=== PATIENT | female | born 1985 | race Caucasian/White ===

== ENCOUNTER 2017-02-20 16:40 | Emergency (ER) | payer BC, OTHER ==
[~2017-02-20] VITALS: Ht 167.6 cm; Wt 108.9 kg
[2017-02-20] MEDS ORDERED: CLARITIN10 MG PO (16:58)
[2017-02-20] MEDS ORDERED: OMEPRAZOLE 20 M20 M1 PO (16:58)
[2017-02-20 17:03] LABS: URINE BLOOD NEGATIVE (Negative); URINE COLOR YELLOW; URINE GLUCOSE-RANDOM* NEGATIVE (Negative); URINE KETONES 1+ (Negative); URINE NITRITE NEGATIVE (Negative); URINE PROTEIN (DIPSTICK) NEGATIVE (Negative); URINE SPECIFIC GRAVITY >= 1.030 (1.003-1.035); URINE UROBILINOGEN 0.2 E.U./dl (0.2-1.0)
[2017-02-20 17:10] LABS: ICTOTEST (BILI CONFIRMATORY) Negative (Negative); URINE BILIRUBIN NEGATIVE (Negative)
[2017-02-20 17:11] LABS: HEMATOCRIT 40.3 % (37.0-47.0); MCH 28.4 pg (26.0-34.0); MCHC 32.2 g/dL (28.0-37.0); MCV 88.3 fL (80.0-100.0); PLATELET COUNT 403 thou/uL (150-400); RBC 4.56 mil/uL (4.20-5.00); RDW 14.7 % (10.5-14.5); WBC 20.1 thou/uL (4.0-11.0)
[2017-02-20 17:12] LABS: MANUAL DIFF YES
[2017-02-20 17:18] LABS: CASTS None Seen /LPF (None Seen); CRYSTALS None Seen /LPF (None Seen); SQUAMOUS 4-10 Moderate /LPF (0-3); URINE WBC 6-15 Few /HPF (0-5)
[2017-02-20 17:19] LABS: BACTERIA 1-9 Few /HPF (None Seen); URINE RBC None Seen /HPF (0-2)
[2017-02-20 17:21] LABS: CALCIUM 9.4 mg/dL (8.5-10.1); CREATININE 0.8 mg/dL (0.6-1.0); POTASSIUM 3.7 mmol/L (3.5-5.1)
[2017-02-20 17:26] LABS: ALBUMIN 3.9 g/dL (3.4-5.0); TOTAL BILIRUBIN 0.5 mg/dL (<0.1-1.0); TOTAL PROTEIN 7.9 g/dL (6.4-8.2)
[2017-02-20 17:42] LABS: ABSOLUTE NEUTROPHILS 16.3 thou/uL (1.4-8.2); TOTAL CELL COUNT 100
[2017-02-20 17:43] LABS: ANISOCYTOSIS 2+; HYPOCHROMASIA 1+
[2017-02-20 17:44] LABS: POLYCHROMASIA OCCASIONAL
[2017-02-20] MEDS ORDERED: ONDANSETRON HCL4 M2 PO (19:37)
[2017-02-20 19:50] VITALS: BP 112/62
== END 2017-02-20 19:52 | disposition home or self-care (01) ==
LOC: ER 16:40
PROVIDERS: Physician Assistant
DX: R10.12 Left upper quadrant pain (principal); D72.829 Elevated white blood cell count, unspecified; R11.2 Nausea with vomiting, unspecified; Z98.84 Bariatric surgery status; Z88.0 Allergy status to penicillin; Z88.2 Allergy status to sulfonamides; Z91.040 Latex allergy status

== ENCOUNTER → 2017-02-22 | Outpatient (CLI) | payer BC, OTHER ==
[~2017-02-22] MED LIST: CLARITIN10 MG PO; OMEPRAZOLE 20 M20 M1 PO; ONDANSETRON HCL4 M2 PO
== END ==
LOC: CAT 11:56
DX: K86.9 Disease of pancreas, unspecified (principal)

== ENCOUNTER → 2019-03-19 | Outpatient (CLI) | payer BC, OTHER | LOC: CAT 07:17 | DX: K42.9 Umbilical hernia without obstruction or gangrene (principal); N83.202 Unspecified ovarian cyst, left side; Z98.84 Bariatric surgery status ==

== ENCOUNTER 2019-07-02 11:18 | Day surgery (SDC) | payer BC, OTHER ==
[~2019-07-02] VITALS: Ht 167.6 cm; Wt 86.2 kg
[~2019-07-02 11:18] MED LIST changes: +ADDERALL 10 MG10 MG PO; +BENTYL 10 MG CA10 M1 PO; +DESVENLAFAXINE100 MG PO; +DULERA 200 MCG/13 GM INH; +PROPRANOLOL 20M20 M1 PO; +SEROQUEL 50 MG50 M1 PO; +TRAMADOL 50 MG50 MG PO; +VALSARTAN-HCTZ1 EAC1 PO; +VENTOLIN HFA 1818 GM INH; +VISTARIL 25 MG25 M1 PO
[2019-07-02 11:54] LABS: CALCIUM 9.2 mg/dL (8.5-10.1); CREATININE 0.8 mg/dL (0.6-1.0); POTASSIUM 3.8 mmol/L (3.5-5.1)
[2019-07-02 12:00] VITALS: BP 130/90
[2019-07-02] MEDS ORDERED: NORCO 5-325 TA1 EAC1 PO (14:19)
[2019-07-02 15:09] VITALS: BP 130/90
--- NOTE | 2019-07-03 09:13 | EKG ---
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
--- NOTE | 2019-07-30 07:54 | O ---
[facility] [place] [address] OPERATIVE REPORT Name: CHRISDICK Pedro Room #: DEP [facility].#: [id number] Admission: 07/02/19 Attend Phys: Enio Shetty MD Discharge: 07/02/19 Date of : 89 Report #: [id number] THIS REPORT FOR: //name// CC: Kian Khan DATE OF SERVICE: 07/02/2019 PREOPERATIVE DIAGNOSIS: Umbilical hernia. POSTOPERATIVE DIAGNOSIS: Umbilical hernia. OPERATIVE PROCEDURE DONE: Laparoscopic repair of umbilical hernia with Symbotex mesh. OPERATING SURGEON: Enio Shetty MD INDICATIONS FOR THE PROCEDURE: The patient is a 33-year-old female who presented with features of an umbilical hernia that is causing increasing discomfort and she wished to have this repaired. The patient was advised laparoscopic repair of the same. DESCRIPTION OF PROCEDURE: After explaining to the patient in detail and informed consent was obtained, the patient was identified in the preoperative holding area. The patient was transferred to the operating room and was placed in supine position. Sequential compressive devices were placed for DVT prophylaxis. Preoperative antibiotics were given. After induction of anesthesia, the abdomen was prepped and draped in a sterile fashion. Through a left upper quadrant 1 cm incision and using Optiview technique, peritoneal cavity was entered and pneumoperitoneum was created. Thereafter, under direct vision, another 8 mm trocar was placed in the left flank and another 5 mm trocar was placed in the left lower quadrant region. On initial inspection, the patient was noted to have a 1.5 cm sized umbilical hernia. I took down all the preperitoneal fat that was going into the hernia and it was from the surrounding region. I then introduced a Symbotex mesh that was trimmed to size for about 10 cm. A [place]-Edvin suture was placed in the center of the mesh on the adherent surface. Mesh was then anchored onto the anterior abdominal wall. Tacks were then placed at 1 cm intervals using SecureStrap. Absolute hemostasis was ensured. The incisions were then closed with 4-0 Monocryl. Dermabond was applied. The patient was stable at the end of the procedure. The patient was awoken from anesthesia and was transferred to the recovery room in stable condition. ESTIMATED BLOOD LOSS: Minimal. [address] [address] OPERATIVE REPORT Name: DICK PEREZ Room #: [facility]#: [id number] Admission: 07/02/19 Attend Phys: Enio Shetty MD Discharge: 07/02/19 Date of : 89 Report #: [id number] CONDITION OF THE PATIENT: Stable. FLUIDS GIVEN: Per anesthesia notes. SPECIMEN SENT: None. COMPLICATIONS: None. ANESTHESIA: General anesthesia. <ELECTRONICALLY SIGNED> By: Enio Shetty MD 07/30/19 0754 1428 1506 Enio Shetty MD /nt
== END 2019-07-02 14:31 | disposition home or self-care (01) ==
LOC: OR 11:18 → TBA 11:18 → OR 14:31
PROVIDERS: Surgery
DX: K42.9 Umbilical hernia without obstruction or gangrene (principal); I10 Essential (primary) hypertension; J45.909 Unspecified asthma, uncomplicated; K21.9 Gastro-esophageal reflux disease without esophagitis; F32.9 Major depressive disorder, single episode, unspecified; F41.9 Anxiety disorder, unspecified; F17.210 Nicotine dependence, cigarettes, uncomplicated; Z98.84 Bariatric surgery status; Z98.890 Other specified postprocedural states; Z91.040 Latex allergy status; Z88.2 Allergy status to sulfonamides; Z88.0 Allergy status to penicillin; Z79.899 Other long term (current) drug therapy
CPT/HCPCS: 50010; 50101; 50249; 50386; 50555; 50984; 52265; 52266; 54022; 54118; 56526; 57092; 57261; 62110; 62900; 70005

== ENCOUNTER → 2019-08-25 | Outpatient (CLI) | payer BC, OTHER ==
[~2019-08-25] MED LIST changes: +NORCO 5-325 TA1 EAC1 PO
== END ==
LOC: ULTRA 15:07
DX: K80.20 Calculus of gallbladder without cholecystitis without obstruction (principal)

== ENCOUNTER 2019-09-02 07:49 | Day surgery (SDC) | payer BC, OTHER ==
[~2019-09-02] VITALS: Ht 167.6 cm; Wt 86.2 kg
[2019-09-02 08:34] VITALS: BP 124/81
[2019-09-02 10:09] LABS: HEMATOCRIT 29.5 % (37.0-47.0); MCH 22.8 pg (26.0-34.0); MCHC 30.7 g/dL (28.0-37.0); MCV 74.2 fL (80.0-100.0); RBC 3.97 mil/uL (4.20-5.00); RDW 18.8 % (10.5-14.5); WBC 5.9 thou/uL (4.0-11.0)
[2019-09-02 10:13] LABS: CREATININE 0.6 mg/dL (0.6-1.0)
[2019-09-02 10:19] LABS: ALBUMIN 3.1 g/dL (3.4-5.0); TOTAL BILIRUBIN 0.3 mg/dL (<0.1-1.0); TOTAL PROTEIN 6.6 g/dL (6.4-8.2)
== END 2019-09-02 12:38 | disposition home or self-care (01) ==
LOC: TBA 07:49 → OR 07:49 → TBA 07:50 → OR 10:47
PROVIDERS: Surgery
DX: K81.9 Cholecystitis, unspecified (principal); Z53.8 Procedure and treatment not carried out for other reasons; J45.909 Unspecified asthma, uncomplicated; K21.9 Gastro-esophageal reflux disease without esophagitis; F32.9 Major depressive disorder, single episode, unspecified; F41.9 Anxiety disorder, unspecified; F17.210 Nicotine dependence, cigarettes, uncomplicated; Z88.0 Allergy status to penicillin; Z88.2 Allergy status to sulfonamides; Z91.041 Radiographic dye allergy status; Z79.899 Other long term (current) drug therapy; Z98.890 Other specified postprocedural states; Z98.84 Bariatric surgery status
CPT/HCPCS: 50010

== ENCOUNTER → 2020-08-30 | Outpatient (CLI) | payer BC, OTHER | LOC: LAB 14:49 | PROVIDERS: ATTEND Surgery | DX: Z01.812 Encounter for preprocedural laboratory examination (principal); Z20.828 Contact with and (suspected) exposure to other viral communicable diseases ==

== ENCOUNTER 2020-09-03 07:15 | Day surgery (SDC) | payer BC, OTHER ==
[~2020-09-03] VITALS: Ht 167.6 cm; Wt 100.2 kg
[~2020-09-03 07:15] MED LIST changes: +DESVENLAFAXINE50 M3 PO; +FLUTICASONE PRO16 GM NASAL; +SYMBICORT160 MCG/4. INH
[2020-09-03 08:14] LABS: HEMATOCRIT 38.8 % (37.0-47.0); HEMOGLOBIN 13.2 gm/dL (12.0-15.0); MCH 31.4 pg (26.0-34.0); MCV 92.4 fL (80.0-100.0); RBC 4.2 mil/uL (4.20-5.00); RDW 13.8 % (10.5-14.5); WBC 6.2 thou/uL (4.0-11.0)
[2020-09-03 08:35] LABS: CALCIUM 8.8 mg/dL (8.5-10.1); CREATININE 0.8 mg/dL (0.6-1.0); POTASSIUM 4.3 mmol/L (3.5-5.1)
[2020-09-03 08:41] LABS: ALBUMIN 3.3 g/dL (3.4-5.0); TOTAL BILIRUBIN 0.2 mg/dL (0.2-1.0); TOTAL PROTEIN 6.9 g/dL (6.4-8.2)
[2020-09-03 09:32] VITALS: BP 115/80
[2020-09-03] MEDS ORDERED: MIRALAX17 GM PO (10:49)
[2020-09-03] MEDS ORDERED: IBUPROFEN 200200 M1 PO (10:49)
[2020-09-03] MEDS ORDERED: ACETAMINOPHEN325 M1 PO (10:49)
[2020-09-03] MEDS ORDERED: COLACE 100 MG100 MG PO (10:49)
[2020-09-03] MEDS ORDERED: OXYCODONE HCL 55 MG PO (10:49)
[2020-09-03 10:56] VITALS: BP 115/80
--- NOTE | 2020-09-06 18:06 | PATH ---
[facility] [address] [place] [address] PATHOLOGY RPT PROCEDURE Name: ALEJANDRA PEREZ Room #: [place] [facility] [facility]#: [id number] Admission: 09/03/20 Date of : 89 Discharge: 09/03/20 Report #: [id number] Path Case #: [id number] [facility] Accession Number: [id number] . 01 Material submitted: . gallbladder - GALLBLADDER . 01 Clinical history: . SYMPTOMATIC CHOLELITHIASIS . 02 Diagnosis: Gallbladder, cholecystectomy: - Mild chronic cholecystitis. - Cholelithiasis. (IUV:pit 09/06/2020) QTP 09/06/2020 1608 Local . 02 Electronically signed: . Maritza Hylton MD, Pathologist NPI- [id number] . 01 Gross description: . Received in formalin labeled "Chris, Alejandra, gallbladder" is a previously opened cholecystectomy specimen measuring 6.0 x 2.7 x 1.4 cm. The serosa is pink-bernabe and focally ragged with a full thickness defect in the fundus measuring 2.1 cm. A possible lymph node is identified adjacent to the cystic neck, measuring 0.4 cm in greatest dimension. The specimen is opened to reveal bernabe-green velvety mucosa without polyps or masses. The average wall thickness is 0.1-0.2 cm. Multiple multifaceted calculi and fragments of calculi are present within the gallbladder and container, measuring in aggregate 4.5 x 2.0 x 0.5 cm and ranging from 0.1-0.7 cm in greatest dimension. Solo Musician sections of the fundus and body, the entire lymph node, and the cystic duct margin are submitted in A1. ([facility]; 09/05/2020) [facility] 09/05/2020 1104 Local . 02 Pathologist provided ICD-10: K80.10 . 02 CPT . 052994 Specimen Comment: A courtesy copy of this report has been sent to [phone], [phone] Specimen Comment: [phone] Specimen Comment: Report sent to / DR FOX Performed at: [address] [place] [address] PATHOLOGY RPT PROCEDURE Name: CHRISALEJANDRA N Room #: DEP [facility]..#: [id number] Admission: 09/03/20 Date of : 89 Discharge: 09/03/20 Report #: [id number] Path Case #: [id number] [address] [facility] [address], [place], [place] [id number] MD Vivek Dooley MD Phone: [phone] Performed at: [address] [id number] MD Maritza Hylton MD Phone: [phone]
== END 2020-09-03 11:50 | disposition home or self-care (01) ==
LOC: OR 07:15 → TBA 07:15 → OR 09:38
PROVIDERS: ATTEND Surgery
DX: K80.10 Calculus of gallbladder with chronic cholecystitis without obstruction (principal); R10.9 Unspecified abdominal pain; J45.909 Unspecified asthma, uncomplicated; F32.9 Major depressive disorder, single episode, unspecified; F41.9 Anxiety disorder, unspecified; K21.9 Gastro-esophageal reflux disease without esophagitis; D64.9 Anemia, unspecified; Z98.890 Other specified postprocedural states; Z79.899 Other long term (current) drug therapy; Z98.84 Bariatric surgery status; Z87.891 Personal history of nicotine dependence
CPT/HCPCS: 50010; 50101; 50411; 50555; 50558; 52265; 52266; 53307; 53310; 53312; 54022; 54118; 55245; 56462; 56525; 56526; 62110; 62900